=== PATIENT | male | born 1980 | race Hispanic/Latino ===

== ENCOUNTER 2022-01-23 18:11 | Inpatient (IN) | payer SELFPAY ==
[~2022-01-23] VITALS: Ht 175.3 cm; Wt 96.5 kg
--- NOTE | 2022-01-23 23:45 | NUR ---
received report from ER nurse, all questions answered. Pt received to unit, assessment complete, call light within reach, no complaint of pain at this time.
--- NOTE | 2022-01-24 01:39 | NUR ---
PT RESTING WITH EYES CLOSED. AWAKENS EASILY TO VOID. VS AND I&O COMPLETE. BLOOD SUGAR OBTAINED AND REPORTED TO PRIMARY RN. PT DENIES THE NEED TO VOID AT THIS TIME. ASSISTED TO REPOSITION IN BED. DENIES FURTHER NEEDS. CALL LIGHT IN REACH.
--- NOTE | 2022-01-24 02:40 | NUR ---
in pt room for rounding. Pt resting easy, even breathing, unlabored, no signs of discomort or pain. Pt call light in reach
--- NOTE | 2022-01-24 04:00 | NUR ---
in pt room for rounding. Pt resting, breathing even, unlabored, no signs of discomfort or pain. Pt call light in reach.
--- NOTE | 2022-01-24 05:55 | NUR ---
in pt room for rounding, pt sleeping on side, no complaints of pain, no signs of discomfort. Pt breathing is even, unlabored. Pt call light in reach
--- NOTE | 2022-01-24 08:35 | NUR ---
Spoke with Surinder and he states he lives in [place]. Currently working and traveling with a [employer]. Has been working in [place] and next will go to [place]. His friend has questions if he can leave for [place] today. They are staying in a Hotel in town. Pt states Dr. Nesbitt told him this am he will be able to leave. I will follow up with Dr. Nesbitt. Per pt he does not have any insurance and does not have a PCP. I will contact the Tish in eligibility to check if he could qualify for OHP as [place] has been [place]. He denies other needs and plans on dc today. His work friend is Bal Daly [phone].
--- NOTE | 2022-01-24 08:38 | NUR ---
DR PEOPLES IN ROOM, SURGERY PERMIT SIGNED. PT ON ROOM AIR, ALERT AND ORIENTED. PT ANXIOUS, REASSURED, SURGICAL PROCEDURE AND POST OP EXPECTATION EXPLAINED TO PT CLARK BOTH AND ZHANG RN, STASED UNDERSTANDING, WILL REVIEW. IVF INSUGIN LAC. RBUTTOCKS FIRM, TENDER, PAINFUL TO TOUCH, NO DRAINAGE, MEDICATED WITH DILAUDID 0.5MG IV. TURNS AND REPOSITIONS SELF IN BED. WORK FRIEND IN ROOM, JOSE CM IN ROOM EXPLAINING TO PT.
--- NOTE | 2022-01-24 09:30 | NUR ---
PT RESTING, AWAKES EASILY, TURNS AND REPOSITIONS SELF IN BED. NO FURTHER C/O PAIN. IVF INFUSING. NO C/O ADVERSEREACTION TO IV ABX. NPO FOR SURGERY LATER TODAY.
--- NOTE | 2022-01-24 10:30 | NUR ---
Surgical wipe down , bed bath completed. procedure explained, cooperative, explaine preop and post op expectation. stated understanding. IVF infusing
--- NOTE | 2022-01-24 11:43 | NUR ---
PATIENT SWITCHED TO SURGICAL STRAIGHT TUBING. PATIENT DENIES NEEDING TO VOID AT THIS TIME.
--- NOTE | 2022-01-24 11:45 | NUR ---
OR crew here to take pt to surgery
--- NOTE | 2022-01-24 12:23 | NUR ---
PATIENT LEFT THE FLOOR AROUND 1030 FOR SURGERY.
--- NOTE | 2022-01-24 13:36 | NUR ---
01/24/22 1336 Papito Alcantara REORIENTED TO TIME AND SITUATION ON ENTRY TO PACU. DENIES NAUSEA OR PAIN. DRESSING SHOWS SEROSANGUINOUS DRAINAGE ON ARRIVAL TO PACU.
--- NOTE | 2022-01-24 13:48 | NUR ---
Received call from Tish from eligibility. Let her know pt is in surgery. She will visit later, before she goes home.
--- NOTE | 2022-01-24 14:07 | NUR ---
back from PACU
--- NOTE | 2022-01-24 14:29 | NUR ---
1410 - back from pacu, I&D R intergluteal cleft, saddle block anesthesia. 1430 - packing, gauze dressing and yellow loop drain in place, ss drainage noted R buttocks, no c/o pain at this time, no void since 0700, denies need for voiding, stated that he does not pee that often, tolerating water well, no emesis. IVF infusing w/o problems. on regular diet, CBG 181 will receive 3 units ss insulin. Discussed with pt and paper written information r/t hypo/hyperglycemis given, read to and he read back, stated understanding. Pt instructed on A1C of13.9 and normal/prefferred levels. stated understanding. Pt turns and repositions self in bed, SCDS in place, call light and fluids at hands reach
--- NOTE | 2022-01-24 15:10 | NUR ---
EATING, AWARE OF NEED TO VOID, EXPLAINED ABOUT SITZ BATH, DRESSING CHANGES AND DIET CHANGES, STATED UNDERSTANDING
--- NOTE | 2022-01-24 15:41 | NUR ---
MED REC COMPLETE
--- NOTE | 2022-01-24 16:26 | NUR ---
awake, afebrile now, IVF infusing, denies c/o pain, gauze R gluteal area w small amount of sanguineous drainage, pt turned and repositioned, tolerating liquids well, no c/o pain at this time.
--- NOTE | 2022-01-24 17:55 | OR ---
[facility] [address], [place] [address] Signed DATE OF OPERATION: 01/24/2022 SURGEON: Rey Peoples MD PREOPERATIVE DIAGNOSIS: Right perirectal abscess. POSTOPERATIVE DIAGNOSIS: Right posterolateral perirectal abscess and pararectal abscess, extensive. PROCEDURES: 1. Exam under anesthesia. 2. Incision and drainage of right deep perirectal abscess. 3. Placement of yellow vessel loop seton. ANESTHESIA: Saddle block with IV sedation, Yessenia Esvin, RUSH SEATER and local 10 mL of 0.25% Marcaine with epinephrine. 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 For the past several days, he has had increasing pain in the right perirectal area, swelling has been noted. He has done some sitz baths with Epsom salt at home. He presented to the emergency room last night and evaluated by Dr. Short, confirming induration in the right theresa-anal area. A CT scan was performed, which did not show a fluid collection, but clinical evidence of completely consistent with perirectal abscess. He has been admitted, given broad-spectrum antibiotic meropenem, anticipating exam under anesthesia, incision and drainage of perirectal abscess. He understands the risks of bleeding, infection, recurrent disease including development of fistula in ANO and disruption or injury to anorectal muscle and wished to proceed. FINDINGS: As expected, copious amounts of purulent material were noted in the pararectal space laterally. It extended relatively high cephalad at least length of the hemostats in the pararectal space. It also tracked anteriorly. It was not a horseshoe abscess per se. Upon drainage and irrigation, the yellow vessel loop seton was placed externally through an anterior counter incision to allow for ongoing drainage. The wound was packed with [id number] iodoform gauze as well as plain gauze. Electronically Signed By: REY PEOPLES MD 01/24/22 1755 PATIENT NAME: TAMELA LEVY OPERATIVE REPORT DATE OF : 84 REPORT #: [id number] PHYSICIAN: REY PEOPLES MD PCP: NO PRIMARY CARE PHYSICIAN REPORT IS CONFIDENTIAL AND NOT TO BE RELEASED WITHOUT AUTHORIZATION [facility] [address], [place] [address] Signed DESCRIPTION OF PROCEDURE: The patient was brought to the operating room, given a saddle block anesthetic and placed in prone carrie-knife position. He received preoperative antibiotic meropenem. In the prone carrie-knife position, the buttocks were taped apart. The perianal area clipped and prepared with a Betadine based solution. The area of maximal induration was identified and approximately 2 cm from the anal verge, an 11 blade was used to incise the skin. The probing with a hemostat revealed copious amounts of purulent material, which egress. Gram stain and cultures were obtained. Loculations were broken down with a hemostat in the pararectal space extended higher than I had anticipated. Additionally, it tracks somewhat anteriorly. These loculations were broken down as well. A counter incision was made and a yellow vessel loop placed between the initial incision and a counter incision. The yellow vessel loop was tied in a knot allowing for elevation of the theresa-anal soft tissue. Copious irrigation was undertaken with saline solution. There was oozing of blood as might be expected from such an intervention. The deep wound sites were packed with quarter-inch iodoform gauze. Plain gauze was packed as well. A peripad was applied. He is returned to the supine position, ultimately taken to the recovery room in good condition. Blood loss was about 20 mL in aggregate. Sponge, needle, and instrument counts reported as correct x3. MD COLBY Angel/MODL /[id number] cc: Dr. Short Copies: ~ Electronically Signed By: REY PEOPLES MD 01/24/22 1755 PATIENT NAME: TAMELA LEVY OPERATIVE REPORT DATE OF : 84 REPORT #: [id number] PHYSICIAN: REY PEOPLES MD PCP: NO PRIMARY CARE PHYSICIAN REPORT IS CONFIDENTIAL AND NOT TO BE RELEASED WITHOUT AUTHORIZATION
--- NOTE | 2022-01-24 17:55 | HP ---
[facility] [address], [place] [address] Signed ADMISSION DATE: 01/23/2022 REASON FOR ADMISSION: Right perirectal abscess. 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 He is from [place], [place]. For several days, since Sunday at least he has had increasing pain in the right perianal area. He presented to the emergency room at approximately midnight last night, was evaluated by Dr. Short with complaints of difficulty sitting in his truck and pain in the perirectal area, highly suggestive of perirectal abscess. He has had no blood in the stool and he has had no fever. Perianal exam shows an area of edema and swelling at his initial emergency room evaluation, no fluctuance proper; however, and a CT scan was performed, which showed perirectal phlegmonous changes extending along the right gluteal fold. I was called in regard to this and I recommended direct admission to my service with IV antibiotics for nearly certain perirectal abscess rather than inflammation alone. Additionally, a chest x-ray was performed, which was normal. He did have an elevated white count of 15.3. Other lab studies normal. PAST MEDICAL HISTORY: Relatively unremarkable. He denies any previous perianal problems. He does have diabetes, which has been largely ignored by him. Indeed, his glucose at admission was 623. Acetone level was negative. He shows no sign of diabetic ketoacidosis. SOCIAL HISTORY: He has children, who are with their mother. He is not . He lives in [place], [place] as previously noted. REVIEW OF SYSTEMS: He denies any shortness of breath or chest pain. His pain is centered only in the right perianal area. PHYSICAL EXAMINATION: GENERAL: Well-developed, well-nourished man, who does not look systemically toxic at this time. VITAL SIGNS: Presentation vital signs showed temperature of 102.1 on 01/23 at 06:30 p.m., in the evening 98.9 and this morning temperature of 98.4 with pulse of 91 and blood pressure 136/88. NECK: Trachea is midline. Electronically Signed By: REY PEOPLES MD 01/24/22 1755 PATIENT NAME: TAMELA LEVY HISTORY AND PHYSICAL DATE OF : 84 REPORT #: [id number] PHYSICIAN: REY PEOPLES MD PCP: NO PRIMARY CARE PHYSICIAN REPORT IS CONFIDENTIAL AND NOT TO BE RELEASED WITHOUT AUTHORIZATION [facility] [address], [place] [address] Signed CHEST: Clear. HEART: Regular. ABDOMEN: Somewhat obese, but soft. : Examination of the left lateral decubitus position shows clear evidence of induration in the right perianal area consistent with perirectal abscess. EXTREMITIES: Show no clubbing, cyanosis, or edema. LABORATORY STUDIES: This morning showed white count decreased slightly to 14.6, hematocrit 38.9, and platelets are 314,000. His lab studies show potassium of 3.3, creatinine of 0.69, glucose now 207 on a moderate sliding scale insulin administration regimen. His COVID test is negative. ASSESSMENT: The patient has right perirectal abscess, this has been going on for several days. CT scan is impressively insensitive for perirectal abscess quite commonly and I have no doubt that incision and drainage is necessary and will be beneficial for drainage of well-formed abscess despite the ambiguous findings on the CT scan. I discussed the pathophysiology of the problem with him and recommendation of treatment to include exam under anesthesia, incision and drainage, and probable placement of the yellow vessel loop. He has been doing sitz baths during the course of his illness using Epsom salts. This would be highly encouraged to continue with upon discharge. As far as being able to sit and fulfill his work responsibilities, it is reasonably probable he will be able to after a few days. The risks of bleeding, infection, recurrent abscess formation, development of fistula in ANO, and so forth were all reviewed in detail. He understands. We will plan to do this procedure as soon as possible today depending on [place] availability. MD COLBY Angel/MODL /[id number] cc: Dr. Short Electronically Signed By: REY PEOPLES MD 01/24/22 1755 PATIENT NAME: TAMELA LEVY HISTORY AND PHYSICAL DATE OF : 84 REPORT #: [id number] PHYSICIAN: REY PEOPLES MD PCP: NO PRIMARY CARE PHYSICIAN REPORT IS CONFIDENTIAL AND NOT TO BE RELEASED WITHOUT AUTHORIZATION [address] [address] Signed Copies: ~ Electronically Signed By: REY PEOPLES MD 01/24/22 1755 PATIENT NAME: TAMELA LEVY HISTORY AND PHYSICAL DATE OF : 84 REPORT #: [id number] PHYSICIAN: REY PEOPLES MD PCP: NO PRIMARY CARE PHYSICIAN REPORT IS CONFIDENTIAL AND NOT TO BE RELEASED WITHOUT AUTHORIZATION
--- NOTE | 2022-01-24 18:02 | NUR ---
PT WAS NPO AT BEGINIG OF SHIFT, ON REGULAR DIET NOW, GETS ACCUCHECKS AC&HS, BS HAVE BEEN HIGH, AND RECEIVED SS INSULIN, DIABETIC TEACHING DONE WRITTEND AND VERBALLY, AWARE OF DIABETIC DIET CHANGES. WENT TO SURGERY FOR I&D OF R GLUTEAL AREA ABSCESS, AWARE OF SITZ BATHS AND DRESSING CHANGES. NO C/O PAIN SINCE RETURN FROM SURGERY. IVF INFUSING, EATING WELL. HAD LOW UO, URINATED LIGHT ANNE MARIE COLORED URINE. AWARE OF NEED TO USE URINAL MORE OFTEN, STAED 'I DONT PEE THAT MUCH EVEN ON A GOOD DAY", MD AWARE. CONT TO REINFORCE DIABETIC TEACHING S/SX AND DIETARY CHANGES, WOUND CARE/SITZ BATHS. USES CALL LIGHT. PT ANXIOUS OVER FINANCIAL DRAIN FROM THIS ADMISSION, REASSURED
--- NOTE | 2022-01-24 18:58 | NUR ---
WHEN I WENT IN THE ROOM TO SEE IF HE WAS DONE WITH HIS DINNER. HE WAS SLEEPING. PATIENT WOKE UP AND NOW HE IS EATING HIS DINNER.
--- NOTE | 2022-01-24 19:05 | NUR ---
SHIFT REPORT RECEIVED FROM DAYSHIFT RN CECY AT BEDSIDE. pt RESTING QUIETLY IN BED, AWOKE EASILY TO VOICE. RESTING ON RA, RR EVEN AND UNLABORED. WOUND TO RIGHT BUTTOCKS COVERED AT THIS TIME, SEROSANGUINEOUS SHADOWING NOTED TO ABD PAD WITH UNDERWEAR IN PLACE, WILL MONITOR. POC DISUCSSED WITH pt, CALL LIGHT IN REACH. IV FLUIDS INFUSING DIRECTED.
--- NOTE | 2022-01-24 21:30 | NUR ---
V/S AND I&O'S COMPLETED. BLOOD SUGAR CHECKED AND CHARTED. PATIENT GOT UP TO USE THE BATHROOM. PATIENT DID SELF EVENING CARE/ORAL CARE.
--- NOTE | 2022-01-24 21:50 | NUR ---
ASSESSMENT COMPLETE, INITIAL TEMP ELEVATED. pt WRAPPED IN BED WITH BLANKETS AND HAD NOT GOTTON OOB RECENTLY. pt UP TO VOID IN BATHROOM AND DEMONSTRATED USE OF IS, REACHED TOP OF IS. TEMP RECHECKED, RESULT OF 98.5. NEW EXTERNAL GAUZE AND ABD PAD TO BUTTOCKS I&D, pt RECENTLY ON LEFT SIDE AND PILLOW PLACED BEHIND pt FOR ADDITIOANL SUPPORT. IV SITE WNL, BRISK BLOOD RETURN NOTED, IV FLUIDS INFUSING DIRECTED. pt DECLINED SCD'S, pt EDUCATED ON ITS USE. pt AGREEABLE TO RECEIVE SCHEDULED SUBQ HEPARIN. PRN PERCOCET GIVEN FOR REPORTED 10/10 PAIN IN BUTTOCKS- UPON ENTERING ROOM OCCASIONAL FACIAL GRIMACING NOTED, BUT NO DISTRESS. NO ADDITIONAL NEEDS, CALL LIGHT IN REACH.
--- NOTE | 2022-01-24 23:07 | NUR ---
SECOND PERCOCET GIVEN FOR REPORTED 7/10 PAIN IN RIGHT BUTTOCKS, SEE EMAR. FRESH WATER ALSO PROVIDED, NO ADDITIONAL NEEDS, CALL LIGHT IN REACH. WILL CONTINUE TO MONITOR.
--- NOTE | 2022-01-25 01:21 | NUR ---
rounded on pt, pt resting in bed with eyes closed. on ra, rr even and unlabored. no distress noted. cpox in place, spo2 96%, hr 80's. call light in reach.
--- NOTE | 2022-01-25 01:47 | NUR ---
call light answered, new bag iv fluids hung and infusing as directed. iv site wnl. assessment complete, no acute changes. cpox in place, vss. pt reports tolerable 5/10 pain, denies need for pain medication at this time. pt reports passing gas, denies nausea. no additional needs verbalized. external gauze somewhat saturated, replaced earlier in shift, no blood to new abd pad that was placed w/ evening assessment, yellow loop drain visualized.
--- NOTE | 2022-01-25 04:14 | NUR ---
DISCUSSED WITH BRICK MOLDER HAND, pt DIABETIC AND GETTING INSULIN SS, BUT ON REGULAR DIET. DIET CHANGED TO ADA DIET PER CLINICAL JUDGEMENT.
--- NOTE | 2022-01-25 05:00 | NUR ---
pt HAD AN UNEVENTFUL NIGHT, SLEPT WELL DURING THE SHIFT. A/OX4, SBA WITH AMBULATION. IV FLUIDS INFUSING, IV SITE WNL. ADA DIET, TOLERATING WELL, NO NASUEA BUT PASSING GAS. SCHEDULED ACCUCHECKS, BLOOD SUGARS IN THE 200'S- POOR CONTROL AT HOME. PAIN CONTROLLED WITH PO PAIN MEDICATION. GAUZE PACKING TO RIGHT BUTTOCKS WOUND, YELLOW LOOP DRAIN ALSO IN PLACE. pt TO HAVE AM SITZ BATH. REQUIRES ENCOURAGEMENT TO VOID, VOIDING QS.
--- NOTE | 2022-01-25 06:42 | NUR ---
EXTERNAL GAUZE AND ABD PAD REMOVED AT THIS TIME, YELLOW LOOP DRAIN REMAINS IN PLACE. pt IN ROOM WITH ANNALISE LIZAMA FOR SITZ BATH PER MD ORDERS.
--- NOTE | 2022-01-25 06:51 | NUR ---
SITZ BATH DONE.
--- NOTE | 2022-01-25 07:23 | NUR ---
report given to dayshift wei schaffer, new gauze and abd pad to right buttocks wound, yellow loop drain remains in place. prn tylenol given for reported 8/10 pain, pt educated to discuss discharge meds with md as pt plans to drive self home to [place] following discharge and shouldn't drive while taking narcotics, also discussed with wei schaffer at shift report. pt also educated on safe tylenol daily intake per emar instructions.
--- NOTE | 2022-01-25 07:57 | NUR ---
Patient awake, alert and oriented x4. Patient reports rectal area is painful, recent tylenol admin per report. IV site patent, fluids infusing per provider order. No current needs, personal supplies and call light within reach.
--- NOTE | 2022-01-25 08:44 | NUR ---
Admin toradol 30mg IV for reports of 7/10 rectal/wound site pain.
--- NOTE | 2022-01-25 11:00 | NUR ---
Patient ambulated in the hallway, tolerated very well. Patient now saline locked per provider order. No current needs, personal supplies and call light within reach.
--- NOTE | 2022-01-25 12:50 | NUR ---
Admin one tab percocet 7.5/325mg po for reports of 6/10 rectal pain.
--- NOTE | 2022-01-25 15:04 | NUR ---
Zofran 4mg IV admin at this time for reported nausea.
--- NOTE | 2022-01-25 15:11 | NUR ---
PT IS ASLEEP, JUAN FLORES REQUESTED I NOT DISTURB PT AT THIS TIME. WILL FOLLOW
--- NOTE | 2022-01-25 15:55 | NUR ---
NO CHANGES IN DISCHARGE PLAN TODAY. POSSIBLE DC TOMORROW ACCORDING TO .
--- NOTE | 2022-01-25 16:06 | NUR ---
PT SHOWERED INDEPENDENTLY AFTER SET UP AND IV COVERED. PT PERFORMED ALL CARES. BATHROOM CLEANED BY THIS CNA2. PT SAT IN CHAIR FOR LUNCH. CALL LIGHT IN REACH. NO OTHER REQUESTS AT THIS TIME.
--- NOTE | 2022-01-25 19:03 | NUR ---
SHIFT REPORT RECEIVED FROM DAYSHIFT JUAN FLORES AT BEDSIDE. pt RESTING QUIETLY IN BED, BUT AWAKE. ON RA, RR EVEN AND UNLABORED. NO DISTRESS NOTED. pt REPORTS A MILD HEADACHE, BUT DENIES NEEDS AT THIS TIME. CALL LIGHT IN REACH.
--- NOTE | 2022-01-25 21:55 | NUR ---
assessment complete, scheduled meds given (see emar). pt a/ox4, vss. prn pain medication also given for reported 6-7/10 pain in buttocks and also reports a headache. pt declined cool rag. vss and i&o's complete, iv site wnl, flushes easily and saline locked. pt educated on s/sx of hypo/hyper-glycemia, pt reports he has no insurance and doesn't take insulin or check his blood sugars at home, reports diet consists largely of fastfood/gas station food. 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 denies nausea, bt active. pt had 1 sitz bath today and showered x1 today, pt refuses second sitz bath w/ rationale that he showered earlier on dayshi, stating, "the shower works better than the bath thing i did earlier". pt educated, yellow loop drain remains patent and gauze w/ abd pad remains in place. fresh water and sf snack provided w/ pain med. call light in reach.
--- NOTE | 2022-01-25 23:58 | NUR ---
rounded on pt, pt resting in bed with eyes closed and on ra. rr even and unlabored, no distress noted. call light in reach.
--- NOTE | 2022-01-26 01:23 | NUR ---
pt RESTING IN BED ON RA, RR EVEN AND UNLABORED. NO DISTRES NOTED, CALL LIGHT IN REACH. WILL CONTINUE TO MONITOR.
--- NOTE | 2022-01-26 04:00 | NUR ---
pt resting in bed with eyes closed, on ra. rr even and unlabored, no distress noted. written diabetes education provided and on bedside, pt briefly awoke. education on hypo/hyper-glycemia, gernalized diabetes education, diabetes zones education, and generalized diet information. theresa squeeze bottle and buttocks air donut also provided. call light in reach.
--- NOTE | 2022-01-26 05:41 | NUR ---
VSS, ASSESSMENT COMPLETE. NO ACUTE CHANGES, pt REPORTS TOLERABLE 4/10 PAIN. pt IN BATHROOM FOR ORDERED SITZ BATH, pt PREFERS TO USE SEVERIANO SQUEEZE BOTTLE, STATES, "I DON'T FEEL THE OTHER WORKS VERY WELL"- pt REFERRING TO TRADITIOANL SITZ BATH. pt EDUCATED ON IT'S USE. pt AWARE OF PROVIDED WRITTEN EDUCATION ON DIABETES-PROVIDED EARLIER IN SHIFT WHILE pt WAS RESTING.
--- NOTE | 2022-01-26 07:49 | NUR ---
Patient resting in bed, a&ox4. Patient reports a headache this morning, ice pack provided. Dressing is CDI, scant sarosang drainage noted. Encouraged patient to call staff if he has needs. Personal supplies and call light within reach.
--- NOTE | 2022-01-26 08:40 | NUR ---
Spoke with pt about his possible dc today. Tish from insurance [employer] cont. to work with pt for [place] Medicaid. Pt stating he plans on either taking 1 week off or going on to [place] for his job. 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 He states he just recently returned to work and is very low on money. He has questions if he can drive and I let him know, not if he is taking pain pills. He is flushing wound with a squirt bottle as he did not like the Sitz bath. We discussed his diabetes and why he is not seeing Dr. He states he has not had time and does not have the money. I explained this dangerous as he is causing harm to his body when his BS is 600. Dr Nesbitt in gave instruction of no driving while taking pain pills, clean surgery site daily with sitz bath or bottle of fluid, follow up with walk in clinic or remove drain byself in [address] Nesbitt discussed Diabetes and need for pt to seek a pcp to monitor pt. Pt stating he can't do this due to no insurance and time. then lectured pt about the dangers of diabetes.
[2022-01-26] MEDS ORDERED: CIPROFLOXACIN500 MG PO (09:43)
[2022-01-26] MEDS ORDERED: TYLENOL EXTRA500 MG PO (09:43)
[2022-01-26] MEDS ORDERED: OXYCODON-ACETA1 EAC2 PO (09:43)
[2022-01-26] MEDS ORDERED: MOTRIN IB200 MG PO (09:43)
[2022-01-26] MEDS ORDERED: METRONIDAZOLE250 MG PO (09:43)
--- NOTE | 2022-01-26 09:45 | NUR ---
Pt now planning on taking 1 week off and staying [place]. Pt denies further needs. Pt states Dr. Nesbitt instructed he can use Tylenol and Ibupofen for pain.
--- NOTE | 2022-01-27 13:13 | DS ---
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 In the preceding several days, he had increasing pain in the right perirectal area and swelling. He presented to the emergency room. He was found to have swelling in the area and a CT scan was performed by the emergency room physician, Dr. Short, which showed edema and inflammation. Clinical examination was quite clearly a perirectal abscess. He is admitted for further evaluation and care. PERTINENT PHYSICAL EXAMINATION: GENERAL: Showed a well-developed, well-nourished, healthy-appearing man. VITAL SIGNS: His temperature was at one time 102.1, returning to 98.4 with IV antibiotics. Blood pressure is 136/88, pulse 91. CHEST: Clear. HEART: Regular. White count was 14.6, hematocrit 38.9, and platelets 314,000. Examination of perianal area showed induration of the right perianal area consistent with perirectal abscess. HOSPITAL COURSE: He underwent administration of IV antibiotic meropenem and after fluid resuscitation, IV antibiotics, he was taken the operating room on January 24, 2022, where he underwent drainage of pararectal abscess, which extended somewhat high in the pararectal space. Complete drainage was accomplished. A yellow vessel loop was placed. Postoperatively, he was maintained on IV antibiotic and changed to Cipro and Flagyl oral antibiotics, which he tolerated well. The patient was noted incidentally to have hyperglycemia at time of admission, which was up to 600. Sliding scale insulin was used to keep blood sugar in a reasonable range. Logistical considerations at time of discharge include the fact that he is from [place], [place]. 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 The patient lives with his parents in [place], [place]. I emphasized to him as did the mission planner nurse, that long-term management of his diabetes will be important to his future health. He is planning to return home to be with his parents, where he lives and align with his family's doctor for further Electronically Signed By: REY PEOPLES MD 01/27/22 1313 PATIENT NAME: TAMELA BENTLEY DISCHARGE SUMMARY DATE OF : 84 REPORT #: [id number] PHYSICIAN: REY PEOPLES MD PCP: NO PRIMARY CARE PHYSICIAN REPORT IS CONFIDENTIAL AND NOT TO BE RELEASED WITHOUT AUTHORIZATION [facility] [address], [place] [address] Signed management of the diabetes. As regards the drain, it can be removed at about 2 weeks. He is encouraged and implored to do sitz baths at least twice a day and keep the area clean. DISCHARGE MEDICATIONS: Include Cipro 500 mg p.o. b.i.d. #10 and Flagyl 250 mg p.o. t.i.d. #15. Pain medicine will include Percocet 7.5/325 one to two p.o. q.6 hours p.r.n. pain #10, also Tylenol plain 1000 mg p.o. q.6 hours #30 refill #4, Motrin 600 mg one p.o. q.6 hours p.r.n. pain #30 refill #2. FOLLOWUP PLANS: I am happy to see him in my office in the next 2 to 3 weeks should he plan to be in the area again. I have instructed him for removal of the drain if he is unable to align with a healthcare provider and chooses not to return to see me. 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 DISCHARGE DIAGNOSES: 1. Right perirectal abscess status post incision and drainage. 2. Newly diagnosed diabetes mellitus. MD COLBY Angel/RIANNA /[id number] cc: Dr. Short Copies: ~ Electronically Signed By: REY PEOPLES MD 01/27/22 1313 PATIENT NAME: TAMELA BENTLEY DISCHARGE SUMMARY DATE OF : 84 REPORT #: [id number] PHYSICIAN: REY PEOPLES MD PCP: NO PRIMARY CARE PHYSICIAN REPORT IS CONFIDENTIAL AND NOT TO BE RELEASED WITHOUT AUTHORIZATION
== END 2022-01-26 11:15 | disposition home or self-care (01) | DRG 346 ==
LOC: ED 18:11 → MS 22:54
PROVIDERS: ADMIT Surgery; ATTEND Surgery
PROC: 0D9P0ZZ Drainage of Rectum, Open Approach (ICD-10-PCS; principal; 2022-01-24 11:00)
DX: K61.1 Rectal abscess (principal); Z20.822 Contact with and (suspected) exposure to COVID-19
CPT/HCPCS: 36415; 71045; 74177; 80053; 81001; 82010; 82803; 83036; 83605; 85025; 87040; 87070; 87075; 87205; 87502; 93005; 93010; 96361; 96375; 96376; 99285-25; A9270; J1170; J1644; J1815; J1885; J2185; J2250; J2405; J2704; J7030; J7121; Q9967; U0003